=== PATIENT | male | born 1945 | race Caucasian/White ===

== ENCOUNTER → 2019-10-11 | Day surgery (SDC) | payer MEDICARE, OTHER ==
--- NOTE | 2019-10-07 12:03 | Diagnostic Imaging Report ---
EXAMINATION: CHEST 2 VIEWS INDICATION: COMPARISON: None FINDINGS: PA and lateral views TUBES and LINES: None. LUNGS: Lungs are well inflated. Lungs are clear. There is no evidence of pneumonia or pulmonary edema. Few round nodules in the perihilar region may reflect end vessels. PLEURA: No pleural effusion or pneumothorax. HEART AND MEDIASTINUM: The cardiomediastinal silhouette is unremarkable. BONES AND SOFT TISSUES: No acute osseous lesion. Soft tissues are unremarkable. UPPER ABDOMEN: No free air under the diaphragm. IMPRESSION: No acute thoracic abnormality. Signed by: Dr. Joyce Masters M.D. on 10/07/2019 12:00 PM
[2019-10-07 12:30] LABS: BASOPHILS # (AUTO) 0.1 (0.0-0.1); BASOPHILS % 0.7 % (0.0-1.0); EOSINOPHILS # (AUTO) 0.1 (0.0-0.4); EOSINOPHILS % 1.5 % (0.0-6.0); HEMATOCRIT 36.9 % (38.2-49.6); HEMOGLOBIN 12.3 g/dL (14.0-18.0); LYMPHOCYTES # (AUTO) 1.5 (1.0-3.2); LYMPHOCYTES % 20.1 % (18.0-39.1); MEAN CORPUSCULAR HEMOGLOBIN 30.4 pg (28-32); MEAN CORPUSCULAR HGB CONC 33.3 g/dL (31-35); MEAN CORPUSCULAR VOLUME 91.3 fL (81-99); MONOCYTES # (AUTO) 0.8 (0.2-0.8); MONOCYTES % 10.5 % (4.4-11.3); NEUTROPHILS # (AUTO) 4.8 (2.1-6.9); NEUTROPHILS % 66.9 % (38.7-80.0); PLATELET COUNT 248 x10e3/uL (140-360); RED BLOOD COUNT 4.04 x10e6/uL (4.3-5.7); RED CELL DISTRIBUTION WIDTH 13.2 % (11.7-14.4)
[2019-10-07 12:48] LABS: ANION GAP 13.8 mmol/L (8-16); BLOOD UREA NITROGEN 11 mg/dL (7-26); BUN/CREATININE RATIO 11 (6-25); CALCIUM 10.2 mg/dL (8.4-10.2); CARBON DIOXIDE 28 mmol/L (22-29); CHLORIDE 94 mmol/L (98-107); CREATININE, SERUM 0.96 mg/dL (0.72-1.25); EST GLOMERULAR FILTRATION RATE > 60 ML/MIN (60-); GLUCOSE 110 mg/dL (74-118); POTASSIUM 3.8 mmol/L (3.5-5.1); SODIUM 132 mmol/L (136-145)
[~2019-10-11] MED LIST: B&O 60MG R/S 60 MG SUPP PR ONE; CEFTRIAXONE SOD 1 GM/NS 50 ML 50 ML IV ONE; DEXAMETHASONE SOD PHOS INJ 4 MG/ML VIAL ONE; ETOMIDATE 2 MG/ML 10 ML INJ IV ONE; FAMOTIDINE20 MG PO; FENTANYL CITRATE/PF 100MCG/2 ML INJ ONE; FLOMAX0.4 MG PO; GENTAMICIN 80MG/NS 100 ML 200 ML IV ONE; IOPAMIDOL 300MG/ML 50ML INFUS..BTL IV ONE; LIDOCAINE HCL 2% LOCAL INJ 5 ML SDV VIAL INJ ONE; LISINOPRIL-HCT1 EACH PO; METFORMIN HCL500 MG PO; MIDAZOLAM HCL 2 MG/2 ML VIAL ONE; ONDANSETRON HCL INJ 2MG/ML 2ML 2 MG/ML VIAL ONE; PRAVACHOL40 MG PO; PROVENTIL HFA6.7 GM INH; SEVOFLURANE INHAL SOLN 250 ML PEN BTL ONE
[2019-10-11 11:55] VITALS: BP 170/90
--- NOTE | 2019-11-27 02:20 | Operative Report ---
DATE OF PROCEDURE: 10/11/2019 SURGEON: Hoang Sierra MD PREOPERATIVE DIAGNOSES: 1. Obstructive benign prostatic hyperplasia. 2. Urinary tract infections. POSTOPERATIVE DIAGNOSIS: 1. Obstructive benign prostatic hyperplasia. 2. Urinary tract infections. 3. Mid urethral stricture disease. 4. Bladder stone. OPERATIONS PERFORMED: 1. Cystourethroscopy with calibration and dilation of mid urethral stricture disease (separate procedure performed for the urethral stricture). 2. Cystourethroscopy with bilateral ureteral catheterization and retrograde ureteropyelography (separate procedure performed for the urinary tract infection). 3. Interpretation of retrograde ureteropyelography, no radiologist present. 4. Supervision of fluoroscopy, no radiologist present. 5. Cystolitholapaxy (separate procedure performed to remove the small stone). 6. Cystourethroscopy with transurethral implantation of four UroLift implants, 1 on the right and 3 on the left (separate procedure performed for the benign prostatic hyperplasia). ANESTHESIA: General. COMPLICATIONS: None. CLINICAL SUMMARY: Jose Joseph is a 73-year-old man with obstructive BPH symptomatology. He is brought for the above procedures. He is aware of the risks of bleeding, infection, injury to adjacent structures, need for additional procedures, and elected to proceed. PROCEDURE IN DETAIL: Informed consent was verified. Jose Joseph was properly identified, taken to the operating room, placed on the cystoscopy table in supine position. Anesthesia was uneventfully begun. The patient was then carefully and gently repositioned in dorsal lithotomy position with all pressure points well padded. His genitalia were prepared and draped in usual sterile fashion. The cystoscope sheath with the visual obturator in place was atraumatically inserted. The patient's urethra was guided down through normal distal urethra to the mid urethral region, where we identified a urethral stricture. This stricture also exhibited a false passage near dorsally into the left. We gently dilated across the stricture, thus dilating it to 22.5-Brazilian in size. I would guess it was approximately 14-Brazilian in size. We then went through the sphincteric region, which exhibited some narrowing there as well, but this was not clinically significant in my opinion. Went to the patient's prostate bed, where there was residual versus regrowth of prostatic tissue, caving in and obstructing the prostatic bed, mostly from the left side. The bladder neck was relatively open. We identified a small stone. Panendoscopy of the bladder revealed no suspicion mucosal lesions, trabeculations were noted. A ureteral catheter was used to cannulate each ureter and retrograde ureteral pyelograms were performed. Interpretation of retrograde ureteropyelography contrast was instilled in retrograde fashion bilaterally. There was ureteral tortuosity of the left mid to distal ureter, but there was no hydronephrosis. Unobstructed drainage was observed bilaterally, fluoroscopically. There were no suspicious lesions. We fragmented and extracted the small bladder stone as it was noted. The cystoscope was withdrawn. The UroLift cystoscope was introduced with the visual obturator. We then deployed 4 UroLift implants. One implant was deployed on the right-hand side to puller through that obstructive BPH. The left side required 3 implants to achieve opening of the prostatic urethra. This procedure resulted in a continuous open channel, which hopefully will relieve the patient's symptomatology. urethral stricture place is yet to be determined. The patient's bladder was drained. Belladonna and Opium suppositories were placed revealing a large smooth prostate without any nodules. The patient was then uneventfully reversed from anesthesia and taken to recovery room in stable condition. There were no complications to the procedure. The patient tolerated the procedure well. Exclusive postop instructions were given. We will plan to follow the patient up in the office, at which point, we will perform uroflowmetry and bladder. Hoang Sierra MD [place]/TERRELL /[id number] cc: Jaycob Littlejohn
== END | disposition home or self-care (01) ==
LOC: OR 07:35
PROVIDERS: ATTEND Urology
DX: N40.1 Benign prostatic hyperplasia with lower urinary tract symptoms (principal); R39.14 Feeling of incomplete bladder emptying; R35.1 Nocturia; R39.12 Poor urinary stream; N39.0 Urinary tract infection, site not specified; N28.1 Cyst of kidney, acquired; F17.200 Nicotine dependence, unspecified, uncomplicated; Z01.810 Encounter for preprocedural cardiovascular examination; Z01.812 Encounter for preprocedural laboratory examination; Z01.818 Encounter for other preprocedural examination; Z11.59 Encounter for screening for other viral diseases; N21.0 Calculus in bladder; N35.919 Unspecified urethral stricture, male, unspecified site
CPT/HCPCS: 52317; C9740; 36415; 71046; 74420; 80048; 82948; 85025; 88300; 93005; C1758; J0696; J1100; J1580; J2001; J2250; J2405; J3010; L8699; U0002